=== PATIENT | male | born 1995 | race Hispanic/Latino ===

== ENCOUNTER 2019-07-22 00:06 | Emergency (ER) | payer SELFPAY ==
[2019-07-22 00:39] LABS: Absolute Lymphocytes (CBC) 1.7 K/uL (0.7-4.9); Basophils % 0.8 % (0-1.3); Hematocrit 41.9 % (39.6-49.0); Lymphocytes % 36.6 % (15.3-44.8); MPV 8.3 fL (7.6-11.3); RBC Red Blood Cell Count 4.68 M/uL (4.33-5.43)
[2019-07-22 00:40] LABS: Protime INR 1.1
[2019-07-22 00:54] LABS: ALT/SGPT 28 U/L (12-78); AST/SGOT 20 U/L (15-37); Albumin 4.2 g/dL (3.4-5.0); Alkaline Phosphatase 70 U/L (45-117); BUN Blood Urea Nitrogen 15 mg/dL (7-18); Bicarbonate 28 mmol/L (21-32); Bilirubin Direct 0.1 mg/dL (0-0.2); Bilirubin Total 0.3 mg/dL (0.2-1.0); Glucose Level 112 mg/dL (74-106); Magnesium 2.4 mg/dL (1.8-2.4); NT PRO-BNP 22 pg/mL (<125); Potassium 3.6 mmol/L (3.5-5.1); Sodium Level 139 mmol/L (136-145)
--- NOTE | 2019-07-22 01:10 | ER ---
Nurse's Notes [facility] Name: Jarod Aburto Age: 24 yrs Sex: Male : 1995 Arrival Date: 07/22/2019 Time: 00:09 Bed 14 Private MD: Diagnosis: Chest pain, unspecified Presentation: 07/21 00:31 Chief complaint: Patient states: my chest started hurting yesterday but it got worse jv1 today about noon. Coronavirus screen: Proceed with normal triage. Ebola Screen:. Initial Sepsis Screen: Does the patient meet any 2 criteria? No. Patient's initial sepsis screen is negative. Does the patient have a suspected source of infection? No. Patient's initial sepsis screen is negative. Risk Assessment: Do you want to hurt yourself or someone else? Patient reports no desire to harm self or others. Onset of symptoms was July 22, 2019. 00:31 Method Of Arrival: Ambulatory jv1 00:31 Acuity: KEREN 3 jv1 Triage Assessment: 00:31 General: Appears in no apparent distress. comfortable, well groomed, Behavior is calm, jv1 cooperative, appropriate for age. Pain: Complains of pain in chest Pain does not radiate. Pain currently is 5 out of 10 on a pain scale. Quality of pain is described as sharp, Pain began 1 day ago. EENT: No signs and/or symptoms were reported regarding the EENT system. Neuro: Level of Consciousness is awake, alert, obeys commands, Oriented to person, place, time, situation, Appropriate for age. Cardiovascular: Reports chest pain, Denies diaphoresis, nausea, shortness of breath, vomiting, Heart tones S1 S2 present Capillary refill < 3 seconds Pulses are all present. Rhythm is regular. Respiratory: Airway is patent Respiratory effort is even, unlabored, Respiratory pattern is regular, symmetrical. GI: No signs and/or symptoms were reported involving the gastrointestinal system. : No signs and/or symptoms were reported regarding the genitourinary system. Derm: No signs and/or symptoms reported regarding the dermatologic system. Musculoskeletal: No signs and/or symptoms reported regarding the musculoskeletal system. Historical: - Allergies: 00:35 No Known Allergies; jv1 - Home Meds: 00:35 None [Active]; jv1 - PMHx: 00:35 None; jv1 - PSHx: 00:35 None; jv1 - Immunization history:: Adult Immunizations up to date. - Social history:: Smoking status: Patient/guardian denies using. - Family history:: not pertinent. Screenin:48 Abuse screen: Denies threats or abuse. Nutritional screening: No deficits noted. jv1 Tuberculosis screening: No symptoms or risk factors identified. Fall Risk None identified. Assessment: 00:36 Reassessment: interview conducted with the aid of an yarn man from [employer]. jv1 General: Appears in no apparent distress. comfortable. Pain: Complains of pain in chest Pain does not radiate. Pain currently is 5 out of 10 on a pain scale. Quality of pain is described as sharp, Pain began 1 day ago. Neuro: Level of Consciousness is awake, alert, obeys commands, Oriented to person, place, time, situation, Appropriate for age Fisher Clam are equal bilaterally Moves all extremities. Full function. Cardiovascular: Reports chest pain, since yesterday, July. Cardiovascular: Denies diaphoresis, nausea, shortness of breath, vomiting, Heart tones S1 S2 present Capillary refill < 3 seconds Pulses are all present. Rhythm is regular. Respiratory:. Respiratory: Airway is patent Respiratory effort is even, unlabored, Respiratory pattern is regular, Breath sounds are clear bilaterally. GI: No signs and/or symptoms were reported involving the gastrointestinal system. : No deficits noted. EENT: No deficits noted. Derm: No deficits noted. Musculoskeletal: No deficits noted. 01:18 Reassessment: Patient appears in no apparent distress at this time. No changes from jv1 previously documented assessment. Patient and/or family updated on plan of care and expected duration. Pain level reassessed. Patient is alert, oriented x 3, equal unlabored respirations, skin warm/dry/pink. Patient denies pain at this time. Patient states feeling better. Patient states symptoms have improved. Vital Signs: 00:31 BP 133 / 93; Pulse 71; Resp 18; Temp 98.2; Pulse Ox 99% ; Pain 5/10; jv1 01:19 BP 138 / 90; Pulse 70; Resp 18; Temp 98; Pulse Ox 100% on R/A; Pain 0/10; jv1 ED Course: 00:00 Inserted saline lock: 20 gauge in right antecubital area, using aseptic technique. rr5 Blood collected. 00:09 Patient arrived in ED. ds1 00:19 Kathy Castro MD is Attending Physician. ma2 00:35 Triage completed. jv1 00:46 Vikram Kam, RN is Primary Nurse. rr5 00:48 Arm band placed on right wrist. jv1 00:48 Patient has correct armband on for positive identification. Bed in low position. Call jv1 light in reach. Side rails up X 1. quality assurance monitor body on. Pulse ox on. NIBP on. 00:49 Patient maintains SpO2 saturation greater than 95% on room air. jv1 01:11 XRAY Chest (1 view) In Process Unspecified. EDMS 01:21 No provider procedures requiring assistance completed. IV discontinued, intact, jv1 bleeding controlled, No redness/swelling at site. Pressure dressing applied. Administered Medications: No medications were administered Outcome: 01:09 Discharge ordered by . ma2 01:27 Discharged to home ambulatory. jv1 01:27 Condition: good 01:27 Discharge instructions given to patient, Instructed on discharge instructions, follow up and referral plans. Demonstrated understanding of instructions, follow-up care. 01:28 Patient left the ED. jv1 Signatures: Dispatcher [employer] EDPA Diamond Bragg ds1 Kathy Castro MD MD ma2 Bernice Cabrera, RN RN jv1 Vikram Kam, RN RN rr5
--- NOTE | 2019-07-22 01:10 | EDPHYS ---
Physician Documentation [facility] Name: Jarod Aburto Age: 24 yrs Sex: Male : 1995 Arrival Date: 07/22/2019 Time: 00:09 Bed 14 Private MD: ED Physician Kathy Castro HPI: 07/21 00:40 This 24 yrs old Male presents to ER via Ambulatory with complaints of Chest ma2 Pain, High Blood Pressure. 00:40 The patient or guardian reports chest pain that is located primarily in the substernal ma2 area. Associated signs and symptoms: Pertinent negatives: abdominal pain, dizziness, lower extremity swelling, lightheadedness. Duration: The patient or guardian reports a single episode, that is still ongoing. Duration: The patient or guardian reports a single episode, constant for 2 wks . Severity of pain: At its worst the pain was very mild in the emergency department the pain is unchanged. The patient has not experienced similar symptoms in the past. Historical: - Allergies: 00:35 No Known Allergies; jv1 - Home Meds: 00:35 None [Active]; jv1 - PMHx: 00:35 None; jv1 - PSHx: 00:35 None; jv1 - Immunization history:: Adult Immunizations up to date. - Social history:: Smoking status: Patient/guardian denies using. - Family history:: not pertinent. ROS: 00:40 Constitutional: Negative for fever, chills, and weight loss. ma2 00:40 All other systems are negative. Exam: 00:40 Constitutional: This is a well developed, well nourished patient who is awake, alert, ma2 and in no acute distress. Head/Face: Normocephalic, atraumatic. Eyes: Pupils equal round and reactive to light, extra-ocular motions intact. Lids and lashes normal. Conjunctiva and sclera are non-icteric and not injected. Cornea within normal limits. Periorbital areas with no swelling, redness, or edema. ENT: Nares patent. No nasal discharge, no septal abnormalities noted. Tympanic membranes are normal and external auditory canals are clear. Oropharynx with no redness, swelling, or masses, exudates, or evidence of obstruction, uvula midline. Mucous membranes moist. Neck: Trachea midline, no thyromegaly or masses palpated, and no cervical lymphadenopathy. Supple, full range of motion without nuchal rigidity, or vertebral point tenderness. No Meningismus. Chest/axilla: Normal chest wall appearance and motion. Nontender with no deformity. No lesions are appreciated. Cardiovascular: Regular rate and rhythm with a normal S1 and S2. No gallops, murmurs, or rubs. Normal PMI, no JVD. No pulse deficits. Respiratory: Lungs have equal breath sounds bilaterally, clear to auscultation and percussion. No rales, rhonchi or wheezes noted. No increased work of breathing, no retractions or nasal flaring. Abdomen/GI: Soft, non-tender, with normal bowel sounds. No distension or tympany. No guarding or rebound. No evidence of tenderness throughout. Skin: Warm, dry with normal turgor. Normal color with no rashes, no lesions, and no evidence of cellulitis. MS/ Extremity: Pulses equal, no cyanosis. Neurovascular intact. Full, normal range of motion. Neuro: Awake and alert, GCS 15, oriented to person, place, time, and situation. Cranial nerves II-XII grossly intact. Motor strength 5/5 in all extremities. Sensory grossly intact. Cerebellar exam normal. Normal gait. Vital Signs: 00:31 BP 133 / 93; Pulse 71; Resp 18; Temp 98.2; Pulse Ox 99% ; Pain 5/10; jv1 01:19 BP 138 / 90; Pulse 70; Resp 18; Temp 98; Pulse Ox 100% on R/A; Pain 0/10; jv1 MDM: 00:19 Patient medically screened. ma2 00:40 Differential diagnosis: costochondritis, esophagitis, gastritis. BRIAN Risk Score: TOTAL ma2 SCORE = 3. 01:09 Data reviewed: vital signs, nurses notes, radiologic studies. Counseling: I had a ma2 detailed discussion with the patient and/or guardian regarding: the historical points, exam findings, and any diagnostic results supporting the discharge/admit diagnosis, the presence of at least one elevated blood pressure reading (>120/80) during this emergency department visit, the need for outpatient follow up. 07/21 00:20 Order name: Basic Metabolic Panel; Complete Time: 00:57 ma2 07/21 00:20 Order name: CBC with Diff; Complete Time: 00:57 ma2 04/10 00:20 Order name: LFT's; Complete Time: 00:57 07/21 00:20 Order name: Magnesium; Complete Time: 00:58 07/21 00:20 Order name: NT PRO-BNP; Complete Time: 00:58 07/21 00:20 Order name: PT-INR; Complete Time: 00:57 07/21 00:20 Order name: Troponin (emerg Dept Use Only); Complete Time: 00:58 07/21 00:20 Order name: XRAY Chest (1 view) 07/21 00:20 Order name: EKG; Complete Time: 00:21 07/21 00:20 Order name: Cardiac monitoring; Complete Time: 00:07/21 00:20 Order name: EKG - Nurse/Tech; Complete Time: 00:07/21 00:20 Order name: IV Saline Lock; Complete Time: :07/21 00:20 Order name: Labs collected and sent; Complete Time: 07/21 00:20 Order name: O2 Per Protocol; Complete Time: :07/21 00:20 Order name: O2 Sat Monitoring; Complete Time: : ma Administered Medications: No medications were administered Disposition: 07/22/19 01:09 Discharged to Home. Impression: Chest pain, unspecified. - Condition is Stable. - Discharge Instructions: Nonspecific Chest Pain. - Medication Reconciliation Form, Thank You Letter, Antibiotic Education, Prescription Opioid Use form. - Follow up: Private Physician; When: Tomorrow; Reason: Continuance of care. Signatures: Dispatcher [employer] EDMS Butch Winkler PA PA jmm Alzahri, Mohammad, MD MD ma2 Bernice Cabrera RN RN jv1 Corrections: (The following items were deleted from the chart) 01:09 07/22/2019 01:09 Discharged to Home. Impression: Chest pain, unspecified. jv1 Condition is Stable. Forms are Medication Reconciliation Form, Thank You Letter, Antibiotic Education, Prescription Opioid Use. Follow up: Private Physician; When: Tomorrow; Reason: Continuance of care. ma2
[2019-07-22 01:42] VITALS: BP 138/90; TEMP 98; O2SAT 100
--- NOTE | 2019-07-22 07:35 | EKG ---
Test Date: 2019-07-22 Test Time: 00:18:41 Blowing Engineer: LAZARO MEASUREMENT RESULTS: Intervals: Rate: 66 RI: 148 QRSD: 98 QT: 368 QTc: 385 [place]: P: 74 RI: 148 QRS: 83 T: 62 INTERPRETIVE STATEMENTS: Normal sinus rhythm Normal ECG No previous ECG available for comparison Electronically Signed On 07-22-19 07:34:38 CDT by Chris Granados
--- NOTE | 2019-07-22 09:54 | RAD REPORT ---
EXAM DESCRIPTION: RAD - Chest Single View - 07/22/2019 1:11 am CLINICAL HISTORY: CHEST PAIN TECHNIQUE: AP portable chest image was obtained 07/22/2019 1:11 am . FINDINGS: Lungs are clear. Heart and vasculature are normal. No measurable pleural effusion and no p neumothorax. No acute bony abnormality seen. No acute aortic findings suspected. IMPRESSION: No acute cardiopulmonary process.
== END 2019-07-22 01:28 | disposition home or self-care (01) ==
LOC: ER 00:06
DX: R07.9 Chest pain, unspecified (principal)
CPT/HCPCS: 36415; 71045; 80048; 80076; 83735; 83880; 84484; 85025; 85610; 93005; 99285